=== PATIENT | female | born 2000 | race African-American/Black ===

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

== ENCOUNTER 2021-05-07 19:56 | Emergency (ER) | payer SELFPAY ==
[~2021-05-07] VITALS: Ht 157.5 cm; Wt 50.0 kg
[~2021-05-07 19:56] MED LIST changes: +ERYT1OIN6 LEFTEYE
[2021-05-07] MEDS ORDERED: TETANUS, DIPHTHERIA, PERTUSSIS VAC/PF 0.5ML (>7YR OLD) IM ONE (21:45)
[2021-05-07] MEDS ORDERED: LIDOCAINE HCL/EPINEPHRINE 1%-EPI 1:100,000 20 ML VIAL INFIL ONE (21:45)
[2021-05-07] MEDS ORDERED: BACITRACIN ZINC OINT UDPKT TOP ONE (21:45)
[2021-05-07] MEDS ORDERED: ACETAMINOPHEN WITH CODEINE 300/30MG TABLET PO ONE (21:45)
[2021-05-07] MEDS ORDERED: BO1 TP (22:46)
[2021-05-07 23:05] VITALS: BP 112/66
== END 2021-05-07 23:06 | disposition home or self-care (01) ==
LOC: ER 19:56
DX: S01.01XA Laceration without foreign body of scalp, initial encounter (principal); W22.09XA Striking against other stationary object, initial encounter; Y93.89 Activity, other specified; Y92.018 Other place in single-family (private) house as the place of occurrence of the external cause
CPT/HCPCS: 81025; 90471; 90715; 99283; J3490; Z7610